=== PATIENT | female | born 1995 | race Caucasian/White ===

== ENCOUNTER → 2017-01-21 | Outpatient (CLI) | payer BC | LOC: MOB LAB 16:11 | PROVIDERS: ATTEND Nurse Practitioner Family | DX: N89.8 Other specified noninflammatory disorders of vagina (principal) | CPT/HCPCS: 87480; 87510; 87660 ==

== ENCOUNTER → 2017-03-01 | Outpatient (CLI) | payer BC | LOC: MOB LAB 09:55 | PROVIDERS: ATTEND Nurse Practitioner Family | DX: K59.00 Constipation, unspecified (principal); L85.3 Xerosis cutis; R68.89 Other general symptoms and signs; Z83.49 Family history of other endocrine, nutritional and metabolic diseases | CPT/HCPCS: 36415; 84439; 84443; 86376; 86800 ==

== ENCOUNTER 2018-05-12 15:49 | Inpatient (IN) ==
[2018-05-12] MEDS ORDERED: METHYLERGONOVINE MALEATE 0.2 MG/1 ML VIAL IM PRN (16:51)
[2018-05-12] MEDS ORDERED: CALCIUM CARBONATE 500 MG (TUMS) CHEWABLE TABLET PO PRN (16:51)
[2018-05-12] MEDS ORDERED: CefOXitin Inj 2 GM in Sodium Chloride 0.9% 100 ML IV PRN (16:51)
[2018-05-12] MEDS ORDERED: Lidocaine 1% 10 MG/ML - 20 ML VIAL SUBCUT PRN (16:51)
[2018-05-12] MEDS ORDERED: Nalbuphine Inj 20 MG/ML Ampule IVP PRN (16:51)
[2018-05-12] MEDS ORDERED: Phenylephrine Inj 50 MCG in Normal Saline Flush 0.5 ML IVP PRN (16:51)
[2018-05-12] MEDS ORDERED: BUTORPHANOL TARTRATE 2 MG/1 ML VIAL IVP PRN (16:51)
[2018-05-12] MEDS ORDERED: LIDOCAINE W/ SODIUM BICARB 0.5 ML SYR SUBD PRN (16:51)
[2018-05-12] MEDS ORDERED: Metoclopramide Inj 10 MG/2 ML VIAL IV PRN (16:51)
[2018-05-12] MEDS ORDERED: TERBUTALINE SULFATE 1 MG/1 ML SDV SUBCUT PRN (16:51)
[2018-05-12] MEDS ORDERED: NALOXONE 0.4 MG/1 ML VIAL IVP PRN (16:51)
[2018-05-12] MEDS ORDERED: diphenhydrAMINE 50 MG/1 ML VIAL IVP PRN (16:51)
[2018-05-12] MEDS ORDERED: Carboprost Inj 250 MCG/ML AMP IM PRN (16:51)
[2018-05-12] MEDS ORDERED: LIDOCAINE HCL 2 % 10 ML JELLY URO-JECT TOPICAL PRN (16:51)
[2018-05-12] MEDS ORDERED: OXYTOCIN 10 UNIT/1 ML IM PRN (16:51)
[2018-05-12] MEDS ORDERED: Naloxone Inj 0.01 MG in Normal Saline Flush 1 ML IVP PRN (16:51)
[2018-05-12] MEDS ORDERED: FAMOTIDINE 20 MG/2 ML VIAL IVP PRN ×2 (16:51)
[2018-05-12] MEDS ORDERED: ONDANSETRON 4 MG/2 ML VIAL IVP PRN (16:51)
[2018-05-12] MEDS ORDERED: fentaNYL Inj 100 MCG/2 ML VIAL IV PRN (16:51)
[2018-05-12] MEDS ORDERED: MISOPROSTOL 200 MCG TABLET RECTAL PRN (16:51)
[2018-05-12] MEDS ORDERED: CITRIC ACID/SODIUM CITRATE 30 ML CUP PO PRN (16:51)
[2018-05-12] MEDS ORDERED: ePHEDrine Inj 5 MG in Normal Saline Flush 1 ML IVP PRN (16:51)
[2018-05-12] MEDS ORDERED: Oxytocin 20 Units + LR 20 UNIT/1,000 ML BAG IV SCH (17:00)
[2018-05-12 17:28] LABS: Hematocrit [HCT] 40.7 % (37.0-47.0); MEAN CORPUSCULAR HEMOGLOBIN 31.2 PG (27-31); MEAN CORPUSCULAR HGB CONC 34.4 g/dL (33-37); MEAN CORPUSCULAR VOLUME 90.6 FL (81-99); MEAN PLATELET VOLUME 10.7 FL (7.4-12.2); RED BLOOD COUNT 4.49 10^6/uL (4.20-5.40)
[2018-05-12 17:36] LABS: BLOOD UREA NITROGEN 11 mg/dL (7-22); BUN/CREATININE RATIO 18.33 (6-20); SERUM ALBUMIN 3.3 g/dL (3.5-4.8); Uric Acid 4.6 mg/dl (2.5-6.2)
[2018-05-12] MEDS ORDERED: Misoprostol Tab 100 MCG TAB VAGINAL ONE (17:45)
[2018-05-12] MEDS: Lactated Ringers-OB Dept 1,000 ML PRIMARY IV SCH ×2 (18:55→23:49)
[2018-05-13] MEDS: Misoprostol Tab 100 MCG TAB VAGINAL SCH (10:04)
[2018-05-13] MEDS: Lactated Ringers-OB Dept 1,000 ML PRIMARY IV SCH (10:23)
[2018-05-13] MEDS: Oxytocin 20 Units + LR 20 UNIT/1,000 ML BAG IV SCH (10:25)
[2018-05-13] MEDS ORDERED: OMEPRAZOLE 20 MG CAPSULE PO SCH (16:00)
[2018-05-13] MEDS ORDERED: DOCUSATE 100 MG PO PRN (21:00)
[2018-05-14 05:23] VITALS: O2SAT 98
[2018-05-14] MEDS: Oxytocin 20 Units + LR 20 UNIT/1,000 ML BAG IV SCH (06:24)
[2018-05-14] MEDS ORDERED: RANITIDINE 150 MG PO SCH (09:00)
[2018-05-14] MEDS ORDERED: [UNRECOGNIZED DRUG - OTHER] PO SCH (09:00)
[2018-05-14] MEDS ORDERED: DOCOSAHEXAENOIC ACID PO SCH (09:00)
[2018-05-14 10:08] LABS: Hematocrit [HCT] 40.7 % (37.0-47.0); Hemoglobin [HGB] 13.7 g/dL (12.0-16.0); MEAN CORPUSCULAR HEMOGLOBIN 30.9 PG (27-31); MEAN CORPUSCULAR HGB CONC 33.7 g/dL (33-37); MEAN CORPUSCULAR VOLUME 91.7 FL (81-99); MEAN PLATELET VOLUME 10.5 FL (7.4-12.2); RED BLOOD COUNT 4.44 10^6/uL (4.20-5.40)
[2018-05-14 10:22] LABS: BLOOD UREA NITROGEN 9 mg/dL (7-22); BUN/CREATININE RATIO 12.85 (6-20); SERUM ALBUMIN 2.9 g/dL (3.5-4.8); Uric Acid 5.5 mg/dl (2.5-6.2)
[2018-05-14 10:34] VITALS: RESP 18
--- NOTE | 2018-05-14 10:37 | OB.PROGRES ---
Interval History: This [address] Larsen was admitted in the evening two days ago for induction due to apparent mild Pre E with proteinuria of 400 mg/24 hours and peripheral edema with occasional mildly elevated BPs against a backdrop of normal BPs and normal labs. She was given cytotec overnight two nights ago but hyperstimulated and was given terbutaline. Pitocin was started early yesterday morning and continued all day long, with no resulting painful contractions and no cervical change beyond the /-2/ where she remains this AM. During her admission, her BP has been normal and the FHRT is beautifully reactive with no significant decelerations. Repeat labs this AM remain normal, and the patient is requesting discharge as her body has not responded to induction efforts thus far and her cervix remains quite unfavorable. Given her normal blood pressure, and the very reassuring FHRT plus the most recent GERALD of 17 cm and normal laboratory studies, I am inclined to agree with her request, especially given her plan to have "many" children. Avoiding an unnecessary delivery would be desirable. We will start a 24 hour urine protein collection and discharge her home to bed rest with close monitoring on L&D. Plan NST, labs, and US on Saturday. Objective - Labs CBC and BMP: 05/14/18 09:55 05/14/18 09:55 - Vital Signs Last Taken Vital Signs: Vital Signs - Last Taken Temperature 98.8 F 05/14/18 06:15 Pulse Rate 93 05/14/18 08:15 Respiratory Rate 17 05/14/18 07:30 Blood Pressure 117/80 05/14/18 08:15 Pulse Ox 98 05/14/18 07:30 Assessment and Plan - Assessment / Plan Additional Assessment/Plan Details: Discharge home to bed rest. F/u Saturday for NST, labs, US. Preecplampsia precautions given.
--- NOTE | 2018-05-14 10:50 | DCSUMMARY ---
Hospitalization Summary Admit Date: 05/12/18 Discharge Date: 05/14/18 Primary Diagnosis:: Mild Pre Eclampsia at 37 weeks EGA Hospital Course: The patient was admitted for induction. She was given cytotec and pitocin with no cervical change. FHRT was beautifully reactive throughout her admission and her BP and labs remained normal. Given the lack of response to induction efforts, the reassuring maternal and surveillance, and the desire to avoid a section, the induction was halted and the patient was discharged to bed rest at home with close f/u. Exam - Vitals Vital Signs: Vital Signs Temperature 98.8 F Temperature Source Oral Pulse Rate [Apical] 80 Pulse Rate [Pulse Oximeter] 89 Pulse Rate 80 Respiratory Rate 18 Blood Pressure [Left Arm] 117/76 Blood Pressure [Right Arm] 116/74 Pulse Ox 98 Oxygen Delivery Method Room Air Height 14 ft 7 in Weight 225 lb
[2018-05-14 11:56] VITALS: BP 126/71; TEMP 98.7
== END 2018-05-14 11:55 | disposition home or self-care (01) | DRG 781 ==
LOC: OBIP 16:56
PROVIDERS: ADMIT Family Medicine; ATTEND Obstetrics & Gynecology

== ENCOUNTER 2018-05-17 15:43 | Inpatient (IN) ==
[2018-05-17] MEDS ORDERED: CALCIUM CARBONATE 500 MG (TUMS) CHEWABLE TABLET PO PRN (15:54)
[2018-05-17] MEDS ORDERED: Naloxone Inj 0.01 MG in Normal Saline Flush 1 ML IVP PRN (15:54)
[2018-05-17] MEDS ORDERED: CefOXitin Inj 2 GM in Sodium Chloride 0.9% 100 ML IV PRN (15:54)
[2018-05-17] MEDS ORDERED: OXYTOCIN 10 UNIT/1 ML IM PRN (15:54)
[2018-05-17] MEDS ORDERED: CITRIC ACID/SODIUM CITRATE 30 ML CUP PO PRN (15:54)
[2018-05-17] MEDS ORDERED: FAMOTIDINE 20 MG/2 ML VIAL IVP PRN ×2 (15:54)
[2018-05-17] MEDS ORDERED: MISOPROSTOL 200 MCG TABLET RECTAL PRN (15:54)
[2018-05-17] MEDS ORDERED: NALOXONE 0.4 MG/1 ML VIAL IVP PRN (15:54)
[2018-05-17] MEDS ORDERED: Phenylephrine Inj 50 MCG in Normal Saline Flush 0.5 ML IVP PRN (15:54)
[2018-05-17] MEDS ORDERED: ONDANSETRON 4 MG/2 ML VIAL IVP PRN (15:54)
[2018-05-17] MEDS ORDERED: ePHEDrine Inj 5 MG in Normal Saline Flush 1 ML IVP PRN (15:54)
[2018-05-17] MEDS ORDERED: Lidocaine 1% 10 MG/ML - 20 ML VIAL SUBCUT PRN (15:54)
[2018-05-17] MEDS ORDERED: LIDOCAINE HCL 2 % 10 ML JELLY URO-JECT TOPICAL PRN (15:54)
[2018-05-17] MEDS ORDERED: Metoclopramide Inj 10 MG/2 ML VIAL IV PRN (15:54)
[2018-05-17] MEDS ORDERED: METHYLERGONOVINE MALEATE 0.2 MG/1 ML VIAL IM PRN (15:54)
[2018-05-17] MEDS ORDERED: TERBUTALINE SULFATE 1 MG/1 ML SDV SUBCUT PRN (15:54)
[2018-05-17] MEDS ORDERED: Nalbuphine Inj 20 MG/ML Ampule IVP PRN (15:54)
[2018-05-17] MEDS ORDERED: LIDOCAINE W/ SODIUM BICARB 0.5 ML SYR SUBD PRN (15:54)
[2018-05-17] MEDS ORDERED: diphenhydrAMINE 50 MG/1 ML VIAL IVP PRN (15:54)
[2018-05-17] MEDS ORDERED: Carboprost Inj 250 MCG/ML AMP IM PRN (15:54)
[2018-05-17] MEDS ORDERED: BUTORPHANOL TARTRATE 2 MG/1 ML VIAL IVP PRN (15:54)
[2018-05-17] MEDS ORDERED: Oxytocin 20 Units + LR 20 UNIT/1,000 ML BAG IV SCH (16:00)
[2018-05-17 17:14] LABS: Hematocrit [HCT] 37.7 % (37.0-47.0); MEAN CORPUSCULAR HEMOGLOBIN 31.2 PG (27-31); MEAN CORPUSCULAR HGB CONC 34.5 g/dL (33-37); MEAN CORPUSCULAR VOLUME 90.4 FL (81-99); MEAN PLATELET VOLUME 10.8 FL (7.4-12.2); RED BLOOD COUNT 4.17 10^6/uL (4.20-5.40)
[2018-05-17 17:24] LABS: BLOOD UREA NITROGEN 13 mg/dL (7-22); BUN/CREATININE RATIO 21.66 (6-20)
[2018-05-17] MEDS ORDERED: Sodium Chloride 0.9% 50 ML ONE (19:02)
--- NOTE | 2018-05-17 20:09 | OB.PROGRES ---
Interval History: The patient is a 22-year-old at 38 weeks' gestation today with preeclampsia without signs or symptoms of severe preeclampsia being admitted for induction of labor with cervical ripening. The patient started having edema of many weeks ago. A 24 urine for total protein was completed around March 30 and was 470+ milligrams of protein in 24 hours. The patient had an elevated blood pressure about 3 weeks ago but that was attributed to the blood pressure cuff size secondary to the patient's weight gain in and a large blood pressure cuff was used and her blood pressure decreased to normal range. Blood pressures since that time have been with a normal-sized blood pressure cuff. The patient has had antepartum testing for the past several weeks secondary to proteinuria and significant edema of . Patient's blood pressures have hovered just below 140/90. Many systolic blood pressures of 138 or 139 and several diastolic blood pressures of 88 or 89. On 05/12/2018 the patient's blood pressure was 139/93. With that being the second elevated blood pressure in her , the patient was admitted for induction of labor and for cervical ripening with the patient's cervix 1 cm and 50% effaced. The patient received 1 dose of 50 g of Cytotec and had mild hyperstimulation without a nonreassuring heart rate tracing. The patient was given 1 dose of terbutaline which caused tachycardia and jitteriness. The patient declined further doses of Cytotec secondary to how she felt after the terbutaline and with the contractions. The patient was then given Pitocin for cervical ripening but her cervix did not change much. With the patient expressing concerns that she wanted a vaginal delivery and was concerned about the section, my GEOSPATIAL APPLICATIONS DEVELOPER partner Dr. Chan discharge the patient 2 days later on 05/14/2018 since the heart rate tracing was category 1 and there was only one other elevated blood pressure the evening of 05/12/2018. Since that time, the patient presented on evening 15 May decreased movement but there was a good category 1 tracing and blood pressures were normal. The patient was offered to stay and undergo cervical ripening but the patient declined. The patient actually collected another 24-hour urine which was finalized on and showed 291 mg of protein in 24 hours. All of her labs have been normal except for hemoconcentration. Creatinine has either been 0.5 or 0.6 and the patient's liver function tests of been normal. The patient has not had a headache. The patient has had significant edema of with a total weight gain of 60 pounds in her and she has had edema since before her third trimester. The patient's initial weight was 170 pounds. The patient did have an GERALD yesterday which was normal. Patient's placenta is posterior and the patient's placenta is a grade 3 placenta with individual cotyledons visualized by the radiologist. The patient presents this evening for induction of labor and for cervical ripening secondary to preeclampsia. 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 Past surgical history significant for oral surgery No known drug allergies. As a child the patient had some type of reaction to penicillin but the patient has had other penicillins since then and was informed that she was not allergic to penicillins. No alcohol, no tobacco, no drugs. 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 She has not had a Pap smear yet since she is 22 years old. Family history with her mother having severe preeclampsia with her first child who is this patient. The patient desires several children. She does not desire section but the patient states that she understands that there is a risk for section. Objective - Cervical Exam Cervical Exam: 1-2/60/-2 TO -3. Baby is in the cephalic presentation but I could not determine position of the head. The cervix is moderate to soft in consistency. There was some blood with membrane sweeping on my exam. [place]: Irregular contractions. Heart Rate Interpretation Category: Category I - Labs CBC and BMP: 05/17/18 15:54 05/17/18 15:55 - Additional Details Additional Details: Lungs clear to auscultation Heart regular rate and rhythm Abdomen is soft, gravid, nontender, no guarding or rebound. Baby is in the cephalic presentation by [facility]'s. Extremities are 4+ pitting edema. The patient also has significant facial edema. Her eyelids are slightly edematous. Reflexes pateller are 3+ bilaterally No clonus. Assessment and Plan - Assessment / Plan Additional Assessment/Plan Details: Assessment: IUP 38 weeks' gestation with preeclampsia without signs or symptoms of severe preeclampsia. The patient has had proteinuria since March 2018 with the initial 24 urine showing 470+ milligrams in 24 hours. The patient has significant edema of with 60 pounds of weight gain with significant edema this causing a significant amount of weight gain. The patient's blood pressure initially tonight was 133/93. Another blood pressure was 127/90. Other blood pressures were normal this evening so far. The patient had 2 elevated blood pressures on 05/12/2018 and an elevated blood pressure several weeks ago. All blood pressures of been less than 160/110. The patient has not had cephalgia or headache and her liver function tests have been normal and no right upper quadrant pain. The patient did have a growth ultrasound on on April 28 which showed the baby to be 2800+ grams or the 72nd percentile. The patient is GBS negative. The patient's cervix currently is not favorable for induction of labor and would require cervical ripening. The patient was admitted on 12 May for cervical ripening and induction of labor but after 36 hours, the patient was discharged home since her cervix did not change much with the hopes that the patient's cervix would ripen spontaneously to allow for a higher chance of a vaginal delivery since the patient would like a vaginal delivery. Plan: I have discussed preeclampsia without severe signs or symptoms. I have discussed induction of labor and cervical ripening. I have discussed the option of Johnson bulb for cervical ripening, 25 g of Cytotec if the patient is not daniele regularly or Pitocin augmentation of her irregular contractions currently. Patient and I discussed tachysystole and nonreassuring status if this were to occur. The patient is currently considering her options and discussing the options with her family. I have discussed that patients who undergo induction of labor for preeclampsia do have an increased risk of section for either unsuccessful cervical ripening, arrest of dilation, arrest of descent, or nonreassuring status. I've discussed in general the patient has a 20-30% chance of having a section with her first and that the rate of section would be higher with patients who undergo induction of labor and cervical ripening. The patient, her , and myself discussed the risk of section to include infection, bleeding, pain, damage to bowel, bladder, nerve, vessel, nicking the baby, blood clots to the legs or lungs, blood transfusion with associated risk, serious infection requiring antibiotics and transferred to a tertiary care hospital, and the low risk of . We also discussed that sometimes the wound needs to be opened up [id number] and heal by secondary intention with a wound VAC and many trips to physical therapy for wound care. The patient and I also discussed that with the amount of edema that she has, this could take many weeks for that edema to resolve. The patient's placenta will be sent to pathology when she does deliver. Patient and I also discussed that there is a small chance that the baby may have to be transferred to a NICU for respiratory status or other reasons. We do not have NICU in the [facility]. This would most likely be [place], [place]. We also discussed epidurals and the patient does have the option for an epidural. We also discussed artificial rupture membranes and possible intrauterine pressure catheter. Addendum: After the patient spoke with her family and then I spoke with the patient again, the patient decided that she would like to try Cytotec 25 g per vagina every 4-6 hours to determine if this helps for cervical ripening. After several doses if the patient's cervix is not ripe and then she would like to try the Johnson bulb. I have ordered the Cytotec. The patient will receive 25 g of Cytotec and not 50 g. Currently, the patient is daniele very irregularly even after gentle membranes sweeping.
[2018-05-17] MEDS ORDERED: Zolpidem Tab 5 MG TAB PO PRN (20:40)
[2018-05-17] MEDS ORDERED: Misoprostol Tab 100 MCG TAB ONE (20:47)
[2018-05-17] MEDS: Misoprostol Tab 100 MCG TAB VAGINAL PRN (20:53)
[2018-05-18] MEDS ORDERED: HYDROXYZINE PAMOATE 25 MG CAPSULE PO PRN (00:11)
[2018-05-18] MEDS: Lactated Ringers-OB Dept 1,000 ML PRIMARY IV SCH ×3 (01:22→18:42)
[2018-05-18] MEDS: Misoprostol Tab 100 MCG TAB VAGINAL PRN (05:15)
--- NOTE | 2018-05-18 11:50 | OB.PROGRES ---
Interval History: The patient states that she is doing okay. Slept minimally last night. No headache. Patient can occasionally feel her contractions. Last night after the first dose of Cytotec she felt uterine contractions every couple of minutes and was concerned initially. The nurse reassured her. Positive movement, no leak of fluid, and the patient had some spotting after the cervical check last night with gentle membrane sweeping. Objective - Cervical Exam Cervical Exam: 2/70/-2 cephalic. Membranes swept gently. [place]: Irregular contractions. After her cervical check and gentle membrane sweeping, there were more regular contractions or uterine irritability. Heart Rate Interpretation Category: Category I - Labs CBC and BMP: 05/17/18 15:54 05/17/18 15:55 - Vital Signs Last Taken Vital Signs: Vital Signs - Last Taken Temperature 98.5 F 05/18/18 04:09 Pulse Rate 75 05/18/18 08:00 Respiratory Rate 18 05/18/18 05:32 Blood Pressure 117/82 05/18/18 07:00 Pulse Ox 96 05/18/18 08:00 - Additional Details Additional Details: Lungs clear to auscultation Heart regular rate and rhythm Abdomen is soft without guarding or rebound Assessment and Plan - Assessment / Plan Additional Assessment/Plan Details: Assessment: IUP 38-1/7 week with preeclampsia without severe signs or symptoms. The patient's cervix has ripened somewhat. Minimal effacement. The patient has received 2 doses of Cytotec 25 g. Last dose was at 0530 hrs. this morning. With gentle membrane sweeping currently, the patient did have some uterine contractions that she could feel. Blood pressures-some have been elevated above 140/90. Majority with bedrest have been less than 140/90. Plan: Continue to observe for contractions. If the contractions continue, I may augment with Pitocin for cervical ripening. If the contractions slowly resolve or slow down, I will have the nurse administer a third dose of Cytotec 25 g per vagina. Continue clear liquids currently. Continue to observe blood pressures. Check a CBC and CMP in the morning.
[2018-05-18] MEDS ORDERED: Oxytocin 20 Units + LR 20 UNIT/1,000 ML BAG IV SCH (13:45)
--- NOTE | 2018-05-18 16:56 | OB.PROGRES ---
Interval History: The patient is currently on 4 milliunits of Pitocin and can feel her contractions. The patient had SROM at 1542 hrs. Clear fluid. The patient currently does not want an epidural but is interested in an epidural later. Objective - Cervical Exam Cervical Exam: By nurse exam almost an hour ago the patient's cervix was 3-4/75/ -2 cephalic. [place]: Contractions every 2-4 minutes. There are couplets present. Heart Rate Interpretation Category: Category I - Labs CBC and BMP: 05/17/18 15:54 05/17/18 15:55 - Vital Signs Last Taken Vital Signs: Vital Signs - Last Taken Temperature 98.7 F 05/18/18 14:30 Pulse Rate 87 05/18/18 15:00 Respiratory Rate 18 05/18/18 05:32 Blood Pressure 91/67 05/18/18 14:00 Pulse Ox 100 05/18/18 15:00 - Additional Details Additional Details: The patient was currently on the labor ball. Assessment and Plan - Assessment / Plan Additional Assessment/Plan Details: Assessment: IUP 38-/ week with SROM with clear fluid. Preeclampsia without severe signs or symptoms. Blood pressures have been okay. By the contraction pattern, the baby may be in the OP presentation. Plan: I would like to place an IUPC with this higher risk patient to monitor contractions and monitor Pitocin administration. The patient would like some fentanyl currently but may want an epidural in the future. She does not want an epidural currently.
[2018-05-18] MEDS: fentaNYL Inj 100 MCG/2 ML VIAL IV PRN ×2 (16:59→22:10)
[2018-05-18] MEDS ORDERED: ePHEDrine Inj 50 MG/ML AMP ONE (17:15)
--- NOTE | 2018-05-18 17:20 | OB.PROGRES ---
Interval History: After the IUPC, the patient stated that she would like an epidural. The patient tolerated the IUPC very well. No pain. It is the contraction pain for which she would like the epidural. Objective - Cervical Exam Cervical Exam: /-2. I could not determine if the baby is in the OP presentation but there is significant room posteriorly. IUPC placed between 3 and 4:00 on a clock face easily. There was no blood with the introduction of the IUPC catheter. Heart Rate Interpretation Category: Category I - Labs CBC and BMP: 05/17/18 15:54 05/17/18 15:55 - Vital Signs Last Taken Vital Signs: Vital Signs - Last Taken Temperature 98.7 F 05/18/18 14:30 Pulse Rate 87 05/18/18 15:00 Respiratory Rate 18 05/18/18 05:32 Blood Pressure 91/67 05/18/18 14:00 Pulse Ox 100 05/18/18 15:00 Assessment and Plan - Assessment / Plan Additional Assessment/Plan Details: Assessment: IUP 38-1/7 week with preeclampsia without severe signs or symptoms. SROM with clear fluid. GBS negative. IUPC placed. The patient's cervix has effaced since my last exam. The patient's cervix has also changed to 3 cm dilated. The patient's cervix is soft. Plan: Administer Pitocin for 200 [place] units. Currently, Pitocin is at 2 milliunits. Continue to observe closely. Continue to observe blood pressures.
--- NOTE | 2018-05-18 17:24 | OB.PROGRES ---
Objective - Labs CBC and BMP: 05/17/18 15:54 05/17/18 15:55 - Vital Signs Last Taken Vital Signs: Vital Signs - Last Taken Temperature 98.7 F 05/18/18 14:30 Pulse Rate 87 05/18/18 15:00 Respiratory Rate 18 05/18/18 05:32 Blood Pressure 91/67 05/18/18 14:00 Pulse Ox 100 05/18/18 15:00 Assessment and Plan - Assessment / Plan Additional Assessment/Plan Details: I spoke with anesthesia. Anesthesia will see the patient. Per the nurse, anesthesia would like another CBC to check her platelets and a CMP since the patient has preeclampsia since the patient had her last blood draw yesterday afternoon around 24 hours ago. I ordered these 2 labs.
[2018-05-18 17:36] LABS: BASOPHILS # (AUTO) 0.02 10*3/UL; BASOPHILS % (AUTO) 0.1 % (0-1); EOSINOPHILS # (AUTO) 0.06 10*3/UL; EOSINOPHILS % (AUTO) 0.4 % (0-8); Hematocrit [HCT] 39.8 % (37.0-47.0); Hemoglobin [HGB] 13.9 g/dL (12.0-16.0); LYMPHOCYTES # (AUTO) 2.04 10*3/uL; MEAN CORPUSCULAR HEMOGLOBIN 31.3 PG (27-31); MEAN CORPUSCULAR HGB CONC 34.9 g/dL (33-37); MEAN CORPUSCULAR VOLUME 89.6 FL (81-99); MEAN PLATELET VOLUME 10.5 FL (7.4-12.2); MONOCYTES # (AUTO) 1.25 10*3/UL (0.3-0.8); MONOCYTES % (AUTO) 9.1 % (5-15); NEUTROPHILS # (AUTO) 10.31 10*3/UL; NEUTROPHILS % (AUTO) 74.9 % (50-80); RED BLOOD COUNT 4.44 10^6/uL (4.20-5.40)
[2018-05-18 17:38] LABS: PLATELET MORPHOLOGY COMMENT NORMAL MORPHOLOGY (NORM); RBC MORPHOLOGY COMMENT NORMAL MORPHOLOGY (NORM); WBC MORPHOLOGY COMMENT NORMAL MORPHOLOGY (NORM)
[2018-05-18 17:45] LABS: BLOOD UREA NITROGEN 10 mg/dL (7-22); BUN/CREATININE RATIO 14.28 (6-20); SERUM ALBUMIN 3.3 g/dL (3.5-4.8)
[2018-05-18] MEDS ORDERED: Fent/Bupiv 2mcg/0.0625% Epid 250 ML ONE (18:08)
--- NOTE | 2018-05-18 18:14 | OB.PROGRES ---
Objective - Labs CBC and BMP: 05/18/18 17:23 05/18/18 17:23 - Vital Signs Last Taken Vital Signs: Vital Signs - Last Taken Temperature 98.7 F 05/18/18 14:30 Pulse Rate 85 05/18/18 15:30 Respiratory Rate 18 05/18/18 05:32 Blood Pressure 91/67 05/18/18 14:00 Pulse Ox 99 05/18/18 15:30 Assessment and Plan - Assessment / Plan Additional Assessment/Plan Details: The patient is still currently receiving her epidural. The patient's platelets were 208,000. The patient's H&H was 13.9 and 39.8 A should creatinine was 0.7. AST and ALT are normal.
[2018-05-18] MEDS ORDERED: fentaNYL 2 MCG/BUPIVACAINE 0.0625%/NS 0.9% 250 ML BAG EPIDURAL ONE (18:31)
--- NOTE | 2018-05-18 18:33 | CRNA.PROGR ---
Anesthesia Time - - Start date: 05/18/18 End date: 05/19/18 - Procedure/Recovery Time Anesthesia : Time In: 17:51 Anesthesia : Time Out: 00:17 (also stood by for repair of vaginal lacerations) Anesthesia : Total Time: 386 - Total Anesthesia Time Total Anesthesia Time (minutes): 386 - Other Weight: 103.929 kg Height: 5 ft 4 in Body Mass Index (BMI): 39.3 Physical Status: P2 (, pre-eclamptic, obese) Anesthesia Type: Epidural
--- NOTE | 2018-05-18 18:38 | CRNA.PROCE ---
Central Neuraxis Block [facility] - - Safety Measures: Time Out Taken, Site Verified - - Type of Block: Epidural (Pt is requesting labor analgesia, even though only [address] Alee Tinoco called me personally to request epidural. Pt is being induced medically for pre-eclampsia, augmented with pitocin. Membranes spontaneously ruptured earlier this afternoon.) Reason for Block: Analgesia Moniters Used During Block: SPO2, NIBP Positioning: Sitting Skin Prep Used: Betadine Draped: Yes Skin Infiltration - Enter Amount Used in Comment Field: 1% Xylocaine (mL): Yes ( 2ml) Introducer User: 18 Gauge Certess Spinal Needle Used: 18 [employer] 80 mm Local Anesthetic - Enter Amount Used in Comment Field: 1.5 % Xylocaine with Epinephrine 1:200,000 (mL): Yes (4ml as test dose which wa neg for iv/sab) Number of Centimeters Catheter Threaded: 3.75 (atraumatic) Bioclusive Dressing Applied: Yes (skin prep used under adhesive.) - - Additional Details: Started infusion around 1819. 0.0625% bupivicaine plus 2 mcg Fentanyl per ml at 14 ml per hour. Loading dose of 14 ml. Demand dose 0f 7 every 10 minutes. dose limit 90 ml per 4 hours. Patient reported comfort by 1829. Discussed the 3 different scenarios including different anesthetics. 5 ml of 2% lido mpf via epidural at 2002 for increased "pressure" Reported by OB RN's to be 8 cm. 5 ml of 2% lido mpf via epidural at 2121 for increased "pressure" and some left sided breakthrough pain. Reprogrammed epidural infusion pump as it seemed to have the lockout in ? hours?? 7 ml loading dose of infusion mixture at 2122. Baby delivered at 2254. Dosed epidural with 5 ml of 3% Chloroprocaine for repair of vaginal lacerations.. Dr Alee Tinoco told me it ws okay to go home at 0017. Anesthesia Time - Other Weight: 103.929 kg Height: 5 ft 4 in Body Mass Index (BMI): 39.3
--- NOTE | 2018-05-18 18:40 | OB.PROGRES ---
Interval History: The patient received her epidural and is much more comfortable. She is pleased that she requested the epidural and received it. Objective - Cervical Exam Cervical Exam: -2 cephalic. [place]: Initial [place] units were 185. Heart Rate Interpretation Category: Category I - Labs CBC and BMP: 05/18/18 17:23 05/18/18 17:23 - Vital Signs Last Taken Vital Signs: Vital Signs - Last Taken Temperature 98.7 F 05/18/18 14:30 Pulse Rate 99 05/18/18 16:00 Respiratory Rate 18 05/18/18 05:32 Blood Pressure 91/67 05/18/18 14:00 Pulse Ox 100 05/18/18 16:00 Assessment and Plan - Assessment / Plan Additional Assessment/Plan Details: Assessment: IUP 38-11/24 week who is undergoing induction of labor with cervical ripening for preeclampsia without severe signs or symptoms. Patient just received an epidural and this is helped significantly with her pain. The cervix has changed from 3-4 cm since the last exam. The baby may be in the OP presentation. Pitocin currently at 2 milliunits but [place] units not adequate. Plan: Increase Pitocin to obtain 200 [place] units. Assess for cervical change in 2-4 hours after [place] units are 200. I informed the nurse that 200 MVUs are fine and that I usually do not I to obtain over 200 [place] units. The patient understands the plan. Continue to observe blood pressures Continue to observe for cervical change in the first stage of labor.
--- NOTE | 2018-05-18 19:01 | OB.PROGRES ---
Interval History: Patient comfortable IUPC needed to be replaced secondary to not functioning after epidural and re- positioning patient. Objective - Cervical Exam Cervical Exam: 5/c/-2 cephalic [place]: IUPC replaced. Heart Rate Interpretation Category: Category I - Labs CBC and BMP: 05/18/18 17:23 05/18/18 17:23 - Vital Signs Last Taken Vital Signs: Vital Signs - Last Taken Temperature 98.7 F 05/18/18 14:30 Pulse Rate 85 05/18/18 17:00 Respiratory Rate 18 05/18/18 05:32 Blood Pressure 91/67 05/18/18 14:00 Pulse Ox 100 05/18/18 17:00 Assessment and Plan - Assessment / Plan Additional Assessment/Plan Details: Assessment: IUP 38-1/7 week with IUPC not functioning well and IUPC was replaced. Cervix did dilate to 5 cm. Completely effaced. Still -2 station. Plan: Observe closely 200 [place] units would be ideal Continue to observe blood pressures Continue to observe for cervical change Hopefully, head will descend into the patient's pelvis.
[2018-05-18] MEDS ORDERED: LIDOCAINE MPF 2% - 5 ML (20 MG/1 ML) ONE ×2 (20:00)
--- NOTE | 2018-05-18 21:17 | OB.PROGRES ---
Interval History: The patient has been feeling some pressure. She has pain with that pressure. Her epidural was dosed about an 1-1/2 hours ago. Objective - Cervical Exam Cervical Exam: 8/c/-1 to 0 station with a contraction. The patient's cervix was very taut around the head. I could not determine the position currently. The anterior cervix had about 1-1/2 cm of cervix. But from 3:00 to 9:00 the cervix was 8 cm dilated. Currently, her cervix was not stretchy. Heart Rate Interpretation Category: Category I (One time the [place] units were 220 but last count was 180 on 6 milliunits of Pitocin.) - Labs CBC and BMP: 05/18/18 17:23 05/18/18 17:23 - Vital Signs Last Taken Vital Signs: Vital Signs - Last Taken Temperature 97.8 F 05/18/18 18:50 Pulse Rate 93 05/18/18 18:50 Respiratory Rate 17 05/18/18 18:50 Blood Pressure 135/84 05/18/18 18:50 Pulse Ox 100 05/18/18 19:00 Assessment and Plan - Assessment / Plan Additional Assessment/Plan Details: Assessment: IUP 38 and 1/7 weeks with preeclampsia without severe symptoms or signs. There has been cervical change since my last exam. The patient is currently 8 cm. The patient currently is on 6 milliunits of Pitocin. Plan: Continue Pitocin Continue to observe closely both cervical dilation and blood pressures.
[2018-05-18 23:35] LABS: Hematocrit [HCT] 34.7 % (37.0-47.0); Hemoglobin [HGB] 11.7 g/dL (12.0-16.0); MEAN CORPUSCULAR HEMOGLOBIN 30.9 PG (27-31); MEAN CORPUSCULAR HGB CONC 33.7 g/dL (33-37); MEAN CORPUSCULAR VOLUME 91.6 FL (81-99); MEAN PLATELET VOLUME 10.4 FL (7.4-12.2); RED BLOOD COUNT 3.79 10^6/uL (4.20-5.40)
--- NOTE | 2018-05-19 00:43 | OB.OP.NOTE ---
Operative Report Surgeon: Earenst Anesthesia Type: Regional (Epidural) Anesthesia Provider: Madina Ramos CRNA Surgery Date: 05/18/18 Preoperative Diagnosis: IUP 38 weeks. Preeclampsia without severe symptoms or signs. Group B strep negative. Significant edema of with 60 pound weight gain. Grade 3 placenta. Patient admitted for cervical ripening and induction of labor Postoperative Diagnosis: Same. Post hemorrhage. Bilateral labia minora laceration superiorly-repaired. Right posterior vaginal laceration repaired Procedure: Cervical ripening with Cytotec 2 doses. Cervical ripening with Pitocin. Intrauterine pressure catheter after spontaneous rupture of membranes. Epidural by anesthesia. Spontaneous vaginal delivery. Spontaneous delivery of placenta. Cytotec-1000 g placed rectally secondary to hemorrhage. Pitocin administration after third stage of labor with delivery of placenta. Johnson catheter placement. Repair of right and then left labia minora lacerations. Repair of right posterior vaginal laceration Estimated Blood Loss (mL): 800 Fluids: Pitocin . 500 mL LR bolus Complications: hemorrhage Findings at Surgery: Male with weight 7 lbs. 7 oz. Apgars were 5 at 1 minute, 5 at 5 minutes, 8 at 10 minutes ABG showed a pH of 7.344, PCO2 of 29.6, HCO3 of 16.1, base excess -10 Placenta appeared intact and was calcified. Otherwise, did not appear grossly abnormal Indications for the Procedure: The patient is a 22-year-old admitted at 38 weeks gestation with preeclampsia without severe signs or symptoms with negative GBS. Patient was admitted for cervical ripening with her cervix 1/50/-2 and induction of labor secondary to the preeclampsia. Description of Procedure: The patient dilated to 8 cm and then within the next half hour dilated to 9 cm and then an anterior lip. The patient was having significant vaginal pressure and pain. The patient was pushing some with contractions secondary to the pain and pressure. The patient did receive fentanyl IV secondary to this pain and the epidural was unfortunately not covering this pain. I was called by the nurses. I checked the patient and the patient was then complete and the patient was informed that she could push with contractions. The patient was placed in the dorsal lithotomy position. The patient's second stage of labor was less than a half hour I believe. The baby's head delivered in the [facility] resident patient and corrected to EMILY. The baby's anterior shoulder was delivered after the head was delivered. Then the baby's mouth and nose were bulb suctioned. The baby's posterior shoulder was then delivered and then the baby was delivered slowly with the mom pushing. The baby went to the mother's chest. Delayed cord clamping of about 40 seconds was allowed for. The cord was still pulsating. The cord was clamped and then cut. A section of cord was obtained for cord gases. Then cord blood was obtained. The placenta then delivered about 10 minutes later intact. I examined the placenta and calcifications could be palpated but it did not appear grossly abnormal. The placenta would be sent to pathology. Pitocin was started after the delivery of the placenta as usual. With uterine massage there was bleeding with increased gushes of bleeding with massage. I gently tried to examine the patient's intrauterine cavity with my digit with a 4 x 4 sponge but could not secondary to patient discomfort. Cytotec 1000 g in 200 g tablets was placed rectally secondary to the increased bleeding. Methergine was not administered secondary to the preeclampsia. I could not visualize the patient's cervix completely but anteriorly there did not appear to be any lacerations. The bleeding started to slow. I estimated the EBL to be 800 mL but it may have been more. An H&H was obtained and it was 11.7 and 34.7. Of note, the white count was 20,000 which had increased from 13,000 before the epidural was placed. It was normal the day before. This could be secondary to labor. The patient was afebrile. Of note, The patient had been slightly tachycardic in the 120s and 130s prior to delivery. Yesterday the patient's pulse was in the 80s or 90s. When the patient had antepartum testing, according to the nurse, sometimes the patient's pulse would be in the 120s. One percent lidocaine without epinephrine was used as a local anesthetic for the patient's right and left labia minora laceration as well as a right posterior vaginal laceration. The left and right labia minora lacerations were repaired with 3-0 Vicryl suture or 3-0 Vicryl Rapide suture with an SH needle. The right posterior vaginal laceration was repaired with 3-0 Vicryl Rapide suture. A rectal exam was completed and there were no buttonhole lacerations noted. Gloves were changed. I could not visualize the patient's cervix circumferentially 360. The patient' s bleeding had slowed significantly. The plan was to observe the patient for bleeding. Afterwards, sponge, lap and needle counts were correct 2. 4 x 4 sponges were 10 in number and the count was correct. As the patient was being cleaned up and moved, the patient had a near syncopal episode and the patient's pulse was in the 140s. The patient's blood pressure was 80s over 40s initially. The patient was given a 500 mL bolus of LR. Quite quickly, the patient started feeling better. The patient will receive 1 dose of IV antibiotics secondary to attempting to examine the patient's intrauterine cavity with a digit and a 4 x 4. A CBC will be obtained in the morning. If the patient's H&H has significantly dropped, the patient may need a blood transfusion. The patient will be followed closely early this morning. Plan: Please see the op note for the plan.
[2018-05-19] MEDS ORDERED: CALCIUM CARBONATE 500 MG (TUMS) CHEWABLE TABLET PO PRN (01:14)
[2018-05-19] MEDS ORDERED: ACETAMINOPHEN 325 MG TABLET PO PRN (01:14)
[2018-05-19] MEDS ORDERED: LIDOCAINE HCL 2 % 10 ML JELLY URO-JECT TOPICAL PRN (01:14)
[2018-05-19] MEDS ORDERED: LANOLIN HPA 40 GM TUBE TOPICAL PRN (01:14)
[2018-05-19] MEDS ORDERED: Nalbuphine Inj 20 MG/ML Ampule IVP PRN (01:14)
[2018-05-19] MEDS ORDERED: diphenhydrAMINE 25 MG CAPSULE PO PRN (01:14)
[2018-05-19] MEDS ORDERED: DIPH,PERTUSS,TET(ADACEL) VAC/PF 0.5 ML (Tdap) IM ONE (01:14)
[2018-05-19] MEDS ORDERED: Ondansetron ODT Tab 4 MG TAB PO PRN (01:14)
[2018-05-19] MEDS ORDERED: ONDANSETRON 4 MG/2 ML VIAL IVP PRN (01:14)
[2018-05-19] MEDS ORDERED: Oxytocin 20 Units + LR 20 UNIT/1,000 ML BAG IV SCH (01:14)
[2018-05-19] MEDS ORDERED: diphenhydrAMINE 50 MG/1 ML VIAL IVP PRN (01:14)
[2018-05-19] MEDS ORDERED: ceFAZolin Inj 2 GM in Sodium Chloride 0.9% 100 ML IV ONE (03:14)
[2018-05-19] MEDS: GLYCERIN/WITCH HAZEL 1 BOX TOPICAL PRN (03:38)
[2018-05-19] MEDS: BENZOCAINE/MENTHOL SPRAY 56 GM BOTTLE TOPICAL PRN (03:38)
[2018-05-19] MEDS: IBUPROFEN 800 MG TABLET PO PRN ×2 (03:38→18:01)
[2018-05-19] MEDS ORDERED: ceFAZolin 1 GM VIAL ONE (03:39)
--- NOTE | 2018-05-19 08:41 | OB.PROGRES ---
Subjective Post Op Day: 1 Pain Management: PO Johnson Catheter: Yes Diet: Clear Liquids [place] Feeding Method: Exculsively Ambulating: Yes Concerns / Additional Information: The patient has ambulated and was lightheaded. She had some bleeding when she first started up initially. Her bleeding has been much decreased recently. Objective - General General Appearance: POSITIVE: No Acute Distress, Cooperative - Cardiovacular Cardiovascular Exam: POSITIVE: Tachycardia Edema: +3 Pedal Edema (Bilaterally) Extremities: Negative Vilma's - Bilaterally - Respiratory Respiratory Exam: POSITIVE: Clear to Auscultation - Bilaterally - Abdomen Bowel Sounds: Present Other Abdominal Exam Details: Abdomen soft, no guarding or rebound. Nontender. - Fundus/Lochia/Perineum Uterus Consistency: Firm Assesstment / Plan Assessment / Plan: Assessment: day #1 status post spontaneous vaginal delivery late last evening with hemorrhage. Patient's blood pressure has been good but the patient has been tachycardic. Patient's H&H last night was 11 and 34 after the hemorrhage. The patient's H&H this morning is pending. Labs came up at 8:00 but the patient was breast-feeding and the lab will come back for the blood. Patient with preeclampsia without severe signs or symptoms. Urine output has been decreased and concentrated. Blood pressures have been normal but not elevated. This could be secondary to blood pressures normalizing or if the patient has severe anemia, the patient's blood pressure may be lower. Plan: Normal saline bolus of 1000 mL over 2 hours Then IV fluids at 125 an hour until patient is drinking well CBC results pending I did talk with patient about the possibility of a blood transfusion if the patient is symptomatic and significantly anemic. We spoke about the low risk of hepatitis B, hepatitis C, HIV. We spoke about a transfusion reaction and that I do premedicate with Tylenol as well as Benadryl. Patient expressed understanding. Will await to determine how patient is doing.
[2018-05-19] MEDS ORDERED: Sodium Chloride 0.9% 1,000 ML PRIMARY IV SCH ×2 (08:45→11:00)
[2018-05-19] MEDS: DOCUSATE 100 MG CAPSULE PO SCH ×2 (08:57→21:00)
[2018-05-19 09:00] LABS: BASOPHILS # (AUTO) 0.01 10*3/UL; BASOPHILS % (AUTO) 0.1 % (0-1); EOSINOPHILS # (AUTO) 0.01 10*3/UL; EOSINOPHILS % (AUTO) 0.1 % (0-8); Hematocrit [HCT] 27.7 % (37.0-47.0); Hemoglobin [HGB] 9.3 g/dL (12.0-16.0); MEAN CORPUSCULAR HEMOGLOBIN 30.8 PG (27-31); MEAN CORPUSCULAR HGB CONC 33.6 g/dL (33-37); MEAN CORPUSCULAR VOLUME 91.7 FL (81-99); MEAN PLATELET VOLUME 10.5 FL (7.4-12.2); MONOCYTES # (AUTO) 1.27 10*3/UL (0.3-0.8); MONOCYTES % (AUTO) 6.5 % (5-15); NEUTROPHILS # (AUTO) 15.71 10*3/UL; NEUTROPHILS % (AUTO) 80.1 % (50-80); RED BLOOD COUNT 3.02 10^6/uL (4.20-5.40)
--- NOTE | 2018-05-19 09:14 | CRNA.PROGR ---
Anesthesia Note - Progress Notes Anesthesia Progress Note: Post Labor Epidural Note Pt is sitting up in bed, she has been up to the restroom and ambulating, she denies any residual problems from the Epidural. Current VS are stable. Vital Signs - Last Taken Temperature 99.6 F 05/19/18 07:05 Pulse Rate 112 H 05/19/18 07:05 Respiratory Rate 20 05/19/18 07:05 Blood Pressure 128/81 05/19/18 07:05 Pulse Ox 97 05/19/18 07:05
[2018-05-19 09:57] LABS: PLATELET MORPHOLOGY COMMENT NORMAL MORPHOLOGY (NORM); RBC MORPHOLOGY COMMENT NORMAL MORPHOLOGY (NORM); WBC MORPHOLOGY COMMENT NORMAL MORPHOLOGY (NORM)
--- NOTE | 2018-05-19 12:19 | OB.PROGRES ---
Subjective Concerns / Additional Information: Patient feels better now that she had a regular diet. Objective - General General Appearance: POSITIVE: No Acute Distress (H&H was 9.3 and 27.7.) Assesstment / Plan Assessment / Plan: The patient's H&H did drop more overnight which I did expect. H&H is 9.3 and 27.7. The patient will be started on ferrous sulfate 325 mg twice a day starting tonight. Colace twice a day to 3 times a day Increased fiber in the diet Greenl leafy vegetables Check CBC in the morning.
[2018-05-19] MEDS ORDERED: SIMETHICONE 80 MG TABLET PO PRN (12:20)
[2018-05-19] MEDS: Lactated Ringers-OB Dept 1,000 ML PRIMARY IV SCH (12:53)
[2018-05-19] MEDS ORDERED: MISOPROSTOL 200 MCG TABLET ONE (18:45)
[2018-05-19] MEDS: FERROUS SULFATE 325 MG TABLET PO SCH (21:00)
[2018-05-19] MEDS: HYDROcodone-APAP 5 MG -325 MG TABLET PO PRN (21:00)
[2018-05-20 05:17] LABS: Hemoglobin [HGB] 8.3 g/dL (12.0-16.0); MEAN CORPUSCULAR HGB CONC 33.2 g/dL (33-37); MEAN CORPUSCULAR VOLUME 93.3 FL (81-99); MEAN PLATELET VOLUME 9.7 FL (7.4-12.2); RED BLOOD COUNT 2.68 10^6/uL (4.20-5.40)
[2018-05-20 05:28] LABS: BLOOD UREA NITROGEN 13 mg/dL (7-22); BUN/CREATININE RATIO 18.57 (6-20); SERUM ALBUMIN 2.3 g/dL (3.5-4.8); Uric Acid 5.6 mg/dl (2.5-6.2)
[2018-05-20] MEDS ORDERED: ceFAZolin Inj 2 GM in Sodium Chloride 0.9% 100 ML IV ONE ×2 (08:33→10:00)
--- NOTE | 2018-05-20 08:33 | OB.PROGRES ---
Subjective Post Op Day: 2 Pain Management: PO Johnson Catheter: Yes Flatus: Yes Diet: Regular Feeding Method: Exculsively Ambulating: Yes Concerns / Additional Information: The patient states that she is feeling a little bit better than yesterday. She is cautious when getting up secondary to her history of lightheadedness. The patient has not been up significantly this morning so she will continue to reassess how she is doing when she is up. The patient is breast-feeding. She would like the Johnson catheter removed but that is up to us depending upon the swelling. No chills. No fever. Objective - General General Appearance: POSITIVE: No Acute Distress, Cooperative - Cardiovacular Cardiovascular Exam: POSITIVE: RRR Edema: +3 Pedal Edema Extremities: Negative Vilma's - Bilaterally - Respiratory Respiratory Exam: POSITIVE: Clear to Auscultation - Bilaterally - Abdomen Other Abdominal Exam Details: Abdomen is soft without tenderness. No guarding or rebound. - Fundus/Lochia/Perineum Uterus Consistency: Firm Assesstment / Plan Assessment / Plan: Assessment: day #2 status post spontaneous vaginal delivery after induction of labor for preeclampsia without severe signs or symptoms. Significant edema of . Patient's H&H this morning is 8.3 and 25. The patient has not been bleeding. This H&H is most likely the deejay after equilibration after the vaginal delivery around 34 hours ago. The patient states she is feeling better and minimally symptomatic currently but has not been up significantly this morning yet. The patient still has some perineal edema with labial edema but the edema is not tense. Plan: I spoke with the patient about a blood transfusion. Currently, the patient's H&H is not significantly a low that I would have to give the patient a blood transfusion but if the patient is symptomatic, I would offer the patient 1 unit of blood to determine if she feels better with that one unit of blood. I have discussed the risk, benefits, alternatives and indication of a blood transfusion but I will give her a consent form so she can repeat it. The patient will get up from bed a little bit more this morning and determine how she is doing. I will also have the nurse do orthostatics supine, sitting, standing with a couple minutes in between each position change. Currently, I will leave the Johnson catheter in place secondary to the edema but we may remove it later today or continue it until tomorrow morning. Since the patient does have a Johnson catheter, I will give the patient another 2 g of IV Ancef as prophylaxis against a UTI or pyelonephritis. Patient tolerated this well . We will continue to assess the patient.
[2018-05-20] MEDS: IBUPROFEN 800 MG TABLET PO PRN (09:05)
[2018-05-20] MEDS: FERROUS SULFATE 325 MG TABLET PO SCH ×2 (09:06→21:15)
[2018-05-20] MEDS: Prenatal Multivitamin Tab 1 TAB TAB PO SCH (09:06)
[2018-05-20] MEDS: DOCUSATE 100 MG CAPSULE PO SCH ×2 (09:06→21:15)
--- NOTE | 2018-05-20 16:03 | OB.PROGRES ---
Assesstment / Plan Assessment / Plan: Orthostatic showed that the patient's blood pressure was fairly stable but the patient's pulse was 89 supine and 119 understanding. The patient states that when she walks she does not have lightheadedness but can fill her pulse increase. We discussed blood transfusion and with an H&H of 8.3 and 25 I would not insist upon it but I did inform the patient that she would most likely feel better if she received a unit of blood. I informed the patient that it is currently up to her whether or not she would like a unit of blood depending upon how she feels. The patient considered her options and currently would like to wait, unless she starts feeling worse, and recheck a CBC in the morning. I am going to check a repeat CMP secondary to slightly increased liver function tests this morning. So a CBC and a CMP was ordered for the morning. The patient's Johnson catheter will be removed this afternoon since the patient's labial edema has decreased. Taryn-bottle and the patient voids to help with some of the discomfort with voiding.
[2018-05-20] MEDS: HYDROcodone-APAP 5 MG -325 MG TABLET PO PRN (21:15)
[2018-05-21 05:25] LABS: BASOPHILS # (AUTO) 0.03 10*3/UL; BASOPHILS % (AUTO) 0.2 % (0-1); EOSINOPHILS # (AUTO) 0.34 10*3/UL; EOSINOPHILS % (AUTO) 2.5 % (0-8); Hematocrit [HCT] 24.4 % (37.0-47.0); Hemoglobin [HGB] 7.7 g/dL (12.0-16.0); LYMPHOCYTES # (AUTO) 3.03 10*3/uL; MEAN CORPUSCULAR HGB CONC 31.6 g/dL (33-37); MEAN CORPUSCULAR VOLUME 94.9 FL (81-99); MEAN PLATELET VOLUME 10.6 FL (7.4-12.2); MONOCYTES # (AUTO) 0.91 10*3/UL (0.3-0.8); MONOCYTES % (AUTO) 6.8 % (5-15); NEUTROPHILS # (AUTO) 8.86 10*3/UL; RED BLOOD COUNT 2.57 10^6/uL (4.20-5.40)
[2018-05-21 05:26] LABS: BLOOD UREA NITROGEN 13 mg/dL (7-22); BUN/CREATININE RATIO 18.57 (6-20); SERUM ALBUMIN 2.4 g/dL (3.5-4.8)
[2018-05-21 05:30] LABS: PLATELET MORPHOLOGY COMMENT NORMAL MORPHOLOGY (NORM); RBC MORPHOLOGY COMMENT NORMAL MORPHOLOGY (NORM); WBC MORPHOLOGY COMMENT NORMAL MORPHOLOGY (NORM)
--- NOTE | 2018-05-21 07:35 | OB.PROGRES ---
Subjective Post Op Day: 3 Pain Management: PO Johnson Catheter: No Flatus: Yes Diet: Regular Feeding Method: Exculsively Ambulating: Yes Concerns / Additional Information: The patient states that she is not bleeding very much. The nurses concur. The patient states that she is very fatigued. However, she has not been lightheaded when she has gotten up. The patient is still considering a blood transfusion of a unit of blood secondary to her extreme fatigue. Objective - General General Appearance: POSITIVE: No Acute Distress, Cooperative - Cardiovacular Cardiovascular Exam: POSITIVE: RRR (With the patient supine in bed.) Edema: +3 Pedal Edema Extremities: Negative Vilma's - Bilaterally - Respiratory Respiratory Exam: POSITIVE: Clear to Auscultation - Bilaterally - Abdomen Bowel Sounds: Present Other Abdominal Exam Details: Abdomen is soft and nontender without guarding or rebound - Fundus/Lochia/Perineum Uterus Consistency: Firm Assesstment / Plan Assessment / Plan: Assessment: day #3 status post spontaneous vaginal delivery and hemorrhage. Preeclampsia without severe signs or symptoms. Patient has been afebrile, blood pressures have been normal. There was one pulse last night that was elevated but otherwise her pulse has been less than 100. The patient was orthostatic by pulse yesterday going from 89-119. The patient states that she is not having near syncopal episodes or lightheadedness with standing or ambulating. However, the patient has extreme fatigue and this most likely is secondary to her anemia since she is use to a much higher H&H. The patient's H&H decreased to 7.7 and 24.4. The patient is not bleeding significantly. Normal bleeding. Most likely the slight drop in H&H since yesterday morning is secondary to still re-equilibration but also the fluid shifts as the patient diuresed. The patient had several liters of fluid diurese yesterday which is excellent. Plan: I offered the patient a unit of blood. The patient stated that she would consider this. The patient did ask that if she received blood would she still be able to go home today and I informed her that most likely she would. I would premedicate her with Tylenol and Benadryl. Did explain to the patient that once she is home, most likely she will be up more caring for her baby and her fatigue could even worsen and she may feel even worse and be tachycardic more often. On the other hand, I will not insist that the patient have a blood transfusion with her current H&H as well as vital signs. Again, the patient most likely would benefit from 1 unit of blood. The patient will consider her options. If the patient declines a blood transfusion, I will consider sending the patient home today. Currently she is taking iron twice a day. We may increase that to 3 times a day since she is tolerating twice a day. The patient had a bowel movement and she was not constipated. The patient will need a blood pressure check in 2 days secondary to the preeclampsia as well as next week.
[2018-05-21 09:29] VITALS: BP 127/87; RESP 18; TEMP 97.8; O2SAT 97
[2018-05-21] MEDS: DOCUSATE 100 MG CAPSULE PO SCH (11:29)
[2018-05-21] MEDS: Prenatal Multivitamin Tab 1 TAB TAB PO SCH (11:29)
[2018-05-21] MEDS: FERROUS SULFATE 325 MG TABLET PO SCH (11:29)
--- NOTE | 2018-05-21 12:02 | OB.PROGRES ---
Assesstment / Plan Assessment / Plan: The patient decided that she would currently politely decline a blood transfusion. The patient is tolerating iron well and I will increase her dose to 3 times a day. The patient will be discharged today. The patient does understand that if she becomes symptomatic secondary anemia that the patient could receive a blood transfusion perhaps as an outpatient or could be readmitted.
--- NOTE | 2018-05-21 12:09 | DCSUMMARY ---
Hospitalization Summary Admit Date: 05/17/18 Discharge Date: 05/21/18 Primary Diagnosis:: IUP 38 weeks with preeclampsia without severe signs or s Secondary Diagnosis:: Significant edema of . Proteinuria of . Primary Surgery and Date: 05/18/2018- spontaneous vaginal delivery. Repair of vaginal and labial lacerations Delivery Type: Vaginal Hospital Course: Patient was admitted on 05/17/2018 for cervical ripening and induction of labor secondary to preeclampsia without severe signs or symptoms. Patient had a spontaneous vaginal delivery the evening of 05/18/2018. The patient had bilateral labia minora lacerations that were repaired as well as a right posterior vaginal laceration. Patient also had a hemorrhage with the initial EBL being 800 mL. A Johnson catheter was placed at the time of the laceration repairs secondary to the edema in the patient's perineum. The patient's course was significant for anemia. Orthostatics were completed on day number 2 and the patient's blood pressure was stable but the patient's pulse was 89 supine and 119 standing. The patient was fatigued but otherwise was not lightheaded when she stood or ambulated. On day #2 the patient's H&H was 8.3 and 25. On day #3 the patient's H&H and H was 7.7 and 24.4. The patient's blood pressures were normal. The patient's pulse was elevated one time the evening of day #2 when the patient just finished ambulating. On day #3 the patient was offered blood transfusion 1 unit initially but the patient politely declined. I explained to the patient that I understood totally and that if she went home and felt significantly more fatigued and short of breath that she should contact us or go to the emergency room and the patient could be transfused 1 unit or 2 units of blood. Patient was also advised that she would be discharged on day #3 but as she would be in the hospital for a couple more hours that if she felt more fatigued after being up and around that she could be transfused a unit of blood while she was still in the hospital. The patient was discharged home with ferrous sulfate 325 mg 3 times a day, Colace twice a day and ibuprofen. The patient would follow-up in 2 days for a blood pressure check and then in one week. The patient was also given specific precautions. / Postop Complications: Please see above Complications: None noted. Exam - Vitals Vital Signs: Vital Signs Temperature 97.8 F Temperature Source Temporal Artery Scan Pulse Rate [Pulse Oximeter] 101 Pulse Rate [Standing] 119 Pulse Rate [Sitting] 89 Pulse Rate [Lying] 87 Pulse Rate 99 Respiratory Rate 18 Blood Pressure [Standing] 134/92 Blood Pressure [Sitting] 122/85 Blood Pressure [Lying] 128/81 Blood Pressure [Right Arm] 127/87 Blood Pressure 119/76 Pulse Ox 97 Oxygen Delivery Method Room Air Height 5 ft 4 in Weight 215 lb 9.6 oz
[2018-05-21] MEDS: BENZOCAINE/MENTHOL SPRAY 56 GM BOTTLE TOPICAL PRN (13:18)
[2018-05-21] MEDS: GLYCERIN/WITCH HAZEL 1 BOX TOPICAL PRN (13:18)
== END 2018-05-21 13:35 | disposition home or self-care (01) | DRG 775 ==
LOC: OBOP 15:43 → OBIP 16:26
PROVIDERS: ADMIT Obstetrics & Gynecology; ATTEND Obstetrics & Gynecology